=== PATIENT | female | born 1975 | race Two or more races ===

== ENCOUNTER 2020-04-09 06:15 | Inpatient (IN) | payer OTHER ==
[~2020-04-09] VITALS: Ht 27.9 cm; Wt 4.0 kg
[~2020-04-09 06:15] MED LIST: ENALAPRIL MALEAT5 MG PO; SYNTROID PO
[2020-04-10] MEDS ORDERED: SYNTHROID100 MCG (09:35)
[2020-04-10] MEDS ORDERED: SYNTHROID125 MCG (09:35)
[2020-04-23] MEDS ORDERED: FLUCONAZOLE100 MG PO (11:03)
[2020-04-23] MEDS ORDERED: PEPCID AC20 MG PO (11:05)
== END 2020-04-23 14:46 | disposition home or self-care (01) | DRG 335 ==
LOC: CIR.AMB 06:15 → O/R 18:32 → SURH 04-10 17:38
PROVIDERS: ADMIT Surgery; ATTEND Surgery
PROC: 0WUF0JZ Supplement Abdominal Wall with Synthetic Substitute, Open Approach (ICD-10-PCS; 2020-04-09)
PROC: 0WJF4ZZ Inspection of Abdominal Wall, Percutaneous Endoscopic Approach (ICD-10-PCS; 2020-04-09)
PROC: 0KXL0ZZ Transfer Left Abdomen Muscle, Open Approach (ICD-10-PCS; 2020-04-09)
PROC: 0KXK0ZZ Transfer Right Abdomen Muscle, Open Approach (ICD-10-PCS; 2020-04-09)
PROC: 02HV33Z Insertion of Infusion Device into Superior Vena Cava, Percutaneous Approach (ICD-10-PCS; 2020-04-09)
PROC: 3E0436Z Introduction of Nutritional Substance into Central Vein, Percutaneous Approach (ICD-10-PCS; 2020-04-09)
PROC: 0DNW4ZZ Release Peritoneum, Percutaneous Endoscopic Approach (ICD-10-PCS; principal; 2020-04-09 09:45)
PROC: 30233N1 Transfusion of Nonautologous Red Blood Cells into Peripheral Vein, Percutaneous Approach (ICD-10-PCS; 2020-04-14)
PROC: 0D9W30Z Drainage of Peritoneum with Drainage Device, Percutaneous Approach (ICD-10-PCS; 2020-04-18)
DX: K43.0 Incisional hernia with obstruction, without gangrene (principal); K65.1 Peritoneal abscess; K56.7 Ileus, unspecified; K66.0 Peritoneal adhesions (postprocedural) (postinfection); Z53.31 Laparoscopic surgical procedure converted to open procedure; D64.9 Anemia, unspecified; E87.6 Hypokalemia